=== PATIENT | female | born 1940 | race Caucasian/White ===

== ENCOUNTER 2016-04-16 05:45 | Day surgery (SDC) | payer MEDICARE, OTHER ==
[2016-04-14 16:44] LABS: BASOPHILS 0.3 % (0.0-2.0); EOSINOPHILS 1.9 % (0-7); HEMATOCRIT 43.6 % (36.0-48.0); HEMOGLOBIN 14.3 g/dL (12-16); IMMATURE GRANULOCYTES 0.3 % (0-5); LYMPHOCYTES 16.3 % (15-50); MCH 29.7 pg (26.0-34.0); MCHC 32.8 g/dL (31.0-37.0); MCV 90.5 fL (80.0-100.0); MONOCYTES 7.3 % (2-11); NEUTROPHILS 73.9 % (40-80); PLATELET COUNT 239 10x3/uL (130-400); RBC 4.82 10x6/uL (4.00-5.40); RDW 13.6 % (11.5-14.5); WBC 7.3 10x3/uL (4.8-10.8)
[2016-04-14 17:15] LABS: CALCIUM 9.5 mg/dL (8.5-10.1); CARBON DIOXIDE 21.2 mmol/L (21.0-32.0); CREATININE - SERUM 1.1 mg/dL (0.6-1.3); POTASSIUM - SERUM 4.2 mmol/L (3.5-5.1)
--- NOTE | 2016-04-15 16:55 | HP ---
PATIENT: TADEO TERRELL MEDICAL RECORD: [id number] ACCOUNT: [id number] LOCATION:CHRISTAL : 39 ADMISSION DATE: 04/16/16 HISTORY AND PHYSICAL EXAMINATION HISTORY OF PRESENT ILLNESS: This patient is a 75-year-old white female experiencing postmenopausal bleeding for quite some time. She was seen in the office for evaluation on March 25. At that time, she underwent an ultrasound revealing a uterus of normal size with moderately thickened endometrium and on evaluation in the office, patient was bleeding equivalent of a moderate menstrual cycle. MEDICAL HISTORY: DRUG ALLERGIES: None known. CURRENT MEDICATIONS: Lisinopril for hypertension. REVIEW OF SYSTEMS: Denies chest pain or dyspnea. PAST MEDICAL HISTORY: Include section and knee replacement. SOCIAL HISTORY: Nonsmoker. No ethanol use. PHYSICAL EXAMINATION: VITAL SIGNS: Weight 174, blood pressure 170/80. HEENT: Grossly unremarkable. LUNGS: Clear. HEART: Regular rate and rhythm. ABDOMEN: Soft, nontender. section incision present. PELVIC: Reveals blood in the vaginal vault. Cervix is high in the pelvis and difficult to evaluate, it is palpably irregular. Uterus not palpable due to obesity. Ultrasound revealed a 6.39 cm uterine length and endometrium of 1.17 cm. Ovaries were not visualized. RECTAL: Rectal exam confirms the above. EXTREMITIES: No cyanosis, clubbing or edema. NEUROLOGIC: Grossly intact. BREAST: Within normal range. IMPRESSION: Postmenopausal bleeding with need evaluation for possible cervical cancer versus endometrial cancer. PLAN: Examination under anesthesia, evaluation of the cervix and uterus, cervical biopsies as indicated, hysteroscopy with endometrial biopsies, endometrial curettage, all indicated procedures. I have discussed the above plan with the patient and answered all of her questions. Further discussed potential risks of surgery, anesthesia, infection, bleeding, possibility of more extensive surgery if complications should occur. All questions were answered. TRANSINT:[id number] Voice Confirmation ID: [id number] DOCUMENT ID: [id number] HISTORY AND PHYSICAL [id number] JERMAINDIEGO BENTONDEIDRE BOJORQUEZ MD at 1659 CC: [id number] DICTATION DATE: 04/15/16 1241 SHOOK MACHINE OPERATOR: 04/15/16 1321 [facility] [address] [place] [address]
[~2016-04-16] VITALS: Ht 165.1 cm; Wt 78.9 kg
[~2016-04-16 05:45] MED LIST: BP MED PO; ZANTAC150 MG PO
[2016-04-16] MEDS ORDERED: PRINIVIL20 MG PO (10:03)
[2016-04-16 10:04] VITALS: BP 141/68; Ht 165.1 cm; Wt 78.9 kg
--- NOTE | 2016-04-16 15:06 | NUR ---
1500--IV DC'D, PT UP TO DRESS AT THIS TIME. SAURABH LOGAN
--- NOTE | 2016-04-16 15:24 | NUR ---
1515--DISCHARGE INSTRUCTIONS GIVEN, PT VERBALIZES UNDERSTANDING. PT OFF UNIT VIA MARY. SAURABH LOGAN
--- NOTE | 2016-04-18 08:37 | OP ---
PATIENT NAME: TADEO TERRELL MEDICAL RECORD: [id number] :39 LOCATION:CHRISTAL ADMISSION DATE: SURGEON: BRITTNEY ELISE MD DATE OF OPERATION: 04/16/2016 PREOPERATIVE DIAGNOSIS: Postmenopausal bleeding. POSTOPERATIVE DIAGNOSIS: Postmenopausal bleeding with cervical lesion. PROCEDURE: Examination under anesthesia, endocervical curettage, cervical biopsy, cervical dilatation, hysteroscopy, endometrial biopsy and a biopsy of the lower endometrium. SURGEON: Brittney Elise MD ANESTHESIA: General. FINDINGS: A friable cervical lesion, atrophic-appearing endometrium and 8 cm endometrial cavity depth. ESTIMATED BLOOD LOSS: 30 cc. COMPLICATIONS OF SURGERY: None. OPERATIVE NOTE: The patient taken to the OR and under adequate general anesthesia, prepped and draped in the usual manner for vaginal procedures with legs in the floating boot Gary stirrups. Evaluation of the cervix revealed a friable lesion. Biopsies were taken of the cervix and visible lesion. This was followed by endocervical curettage the endometrial cavity sounded to approximately 8 cm in depth. Cervix was progressively dilated to accept the hysteroscope and hysteroscopic evaluation revealed an atrophic appearing smooth endometrium. There was a friable lesion in the very lower portion of the endometrial cavity. Biopsies were taken of this area separately instruments were then removed and the patient went to the recovery area in good condition with minimal bleeding. TRANSINT:[id number] Voice Confirmation ID: [id number] DOCUMENT ID: [id number] BRITTNEY ELISE MD at 0837 CC: [id number] DICTATION DATE: 04/16/16 1345 TELEPHONE WORKER: 04/16/161909 [facility] 04/16/16 [facility] [address] [place] [address]
== END 2016-04-16 15:15 | disposition home or self-care (01) ==
LOC: D.OPS 05:45 → D.PAN 11:30 → D.OPS 15:15
PROVIDERS: Obstetrics & Gynecology
DX: C53.0 Malignant neoplasm of endocervix (principal); C54.1 Malignant neoplasm of endometrium; I10 Essential (primary) hypertension; Z79.899 Other long term (current) drug therapy; Z96.659 Presence of unspecified artificial knee joint

== ENCOUNTER 2016-05-04 09:17 | Inpatient (IN) | payer MEDICARE, OTHER ==
[~2016-05-04] VITALS: Ht 165.1 cm; Wt 73.7 kg
[~2016-05-04 09:17] MED LIST changes: +PRINIVIL20 MG PO
[2016-05-04 10:00] LABS: BASOPHILS 0 % (0.0-2.0); EOSINOPHILS 0 % (0-7); HEMATOCRIT 39.5 % (36.0-48.0); HEMOGLOBIN 13.2 g/dL (12-16); IMMATURE GRANULOCYTES 0.3 % (0-5); LYMPHOCYTES 4.3 % (15-50); MCH 29.3 pg (26.0-34.0); MCHC 33.4 g/dL (31.0-37.0); MCV 87.8 fL (80.0-100.0); MEAN PLATELET VOLUME 11.2 fL (7.4-10.4); MONOCYTES 11.8 % (2-11); NEUTROPHILS 83.6 % (40-80); RDW 13.9 % (11.5-14.5); WBC 8.9 10x3/uL (4.8-10.8)
[2016-05-04 10:07] LABS: PLATELET COUNT 175 10x3/uL (130-400)
[2016-05-04 10:15] LABS: ALBUMIN 2.9 g/dL (3.4-5.0); ALKALINE PHOSPHATASE 94 U/L (46-116); ALT (SGPT) 40 U/L (10-68); CALC OSMOLALITY 285 mosm/kg (275-300); CALCIUM 10.4 mg/dL (8.5-10.1); CARBON DIOXIDE 21.9 mmol/L (21.0-32.0); CHLORIDE - SERUM 101 mmol/L (98-107); CREATININE - SERUM 1.8 mg/dL (0.6-1.3); POTASSIUM - SERUM 4.3 mmol/L (3.5-5.1); PROTEIN - SERUM 7.8 g/dL (6.4-8.2); SODIUM 136 mmol/L (136-145); UREA NITROGEN 39 mg/dL (7-18); eGFR NON AFRICAN AMERICAN 29 mL/min (90-120)
[2016-05-04 10:16] LABS: GLUCOSE 182 mg/dL (74-106)
[2016-05-04 10:19] LABS: COLOR YELLOW (YELLOW)
[2016-05-04 10:20] LABS: APPEARANCE CLOUDY (CLEAR); BILIRUBIN NEGATIVE (NEGATIVE); GLUCOSE NEGATIVE (NEGATIVE); KETONE NEGATIVE (NEGATIVE); LEUKOCYTE ESTERASE 2+ (NEGATIVE); NITRITE NEGATIVE (NEGATIVE); PROTEIN 2+ mg/dL (NEGATIVE); SPECIFIC GRAVITY 1.015 (1.005-1.020); UROBILINOGEN NORMAL (NORMAL); WHITE CELLS - URINE >50 /hpf (0-5)
[2016-05-04 10:21] LABS: BACTERIA MANY /hpf (NONE SEEN); EPITHELIAL CELLS 0-5 /hpf (0-5)
[2016-05-04 10:23] LABS: AMYLASE - SERUM 34 U/L (25-115); LIPASE 142 U/L (73-393); PRO BNP 310 pg/mL (0-450)
[2016-05-04 10:26] LABS: TROPONIN-I < 0.017 ng/mL (0.000-0.060)
--- NOTE | 2016-05-04 12:40 | NUR ---
RECIEVED FROM ER. ALERT AND ORIENTED. C/O BACK PAIN. HX OF NAUSEA. VOMITING AND DIARRHEA FOR 4 DAYS. TELEMERTY SHOWS SR 97. SR UP WITH CALL LIGHT IN REACH. WILL MONITOR. FAMILY AT BEDSIDE
[2016-05-04 12:42] VITALS: BP 119/67
[2016-05-04 12:49] VITALS: BP 119/67; BMI 27.5
--- NOTE | 2016-05-04 14:47 | NUR ---
LYING QUIETLY, STATES THAT SHE HAS NO PAIN. CALL LIGHT IN REACH WITH SR UP
[2016-05-04 16:03] VITALS: BP 139/49
--- NOTE | 2016-05-04 20:21 | NUR ---
PT RECEIVED LYING IN BED AAO X4 WITH FAMILY MEMBER AT BEDSIDE . HEART RRR. LUNG SOUNDS CLEAR BILATERALLY. BOWEL SOUND ACTIVE X4 QUADRENTS. IV NOTED TO LEFT FOREARM WITH NS @ 125. PATENT. PT RATES PAIN 5/10, STATES PAIN IS IN HER BACK AND SHOULDER. ADMINISTERED DILAUID IVP. PT DENIES NEEDS AT THIS TIME. BED LOW. PHONE AND CALL LIGHT IN REACH. SIDE RAILS UP X2.
[2016-05-04 20:51] VITALS: BP 141/55
--- NOTE | 2016-05-04 21:37 | NUR ---
PT VOMITED APPROX 150 CC. C/O NAUSEA. INFORMED PT SHE COULD HAVE MORE ZOFRAN AT 2300. PT VOIDED 400 CC DARK YELLOW URINE. ADMINISTERED LISINOPRIL PO AND PEPCID PO. PT DENIES OTHER NEEDS. FAMILY MEMBER AT BEDSIDE. BED LOW. PHONE AND CALL LIGHT IN REACH. SIDE RAILS UP X2.
--- NOTE | 2016-05-04 23:01 | NUR ---
PT C/O NAUSEA. ADMINISTERED ZOFRAN IVP PER ORDERS. PT DENIES FURTHER NEEDS. BED LOW. PHONE AND CALL LIGHT IN REACH. SIDE RAILS UP X2.
[2016-05-05 00:30] VITALS: BP 136/62
--- NOTE | 2016-05-05 01:31 | NUR ---
PT DESIGN TECH LIGHT. STATES SHE NEEDS TO USE RESTROOM. PT VOIDED 350 ML. ASSISTED PT BACK TO BED. DENIES FURTHER NEEDS.
--- NOTE | 2016-05-05 03:38 | NUR ---
PT RESTING QUIETLY WITH EYES CLOSED. RESPIRATIONS EVEN, NON-LABORED. NO ACUTE DISTRESS NOTED AT THIS TIME.
[2016-05-05 04:30] VITALS: BP 116/50
--- NOTE | 2016-05-05 04:43 | NUR ---
PT REQUESTS MEDICATION FOR PAIN 05/30. ADMINISTERED DILAUDID 0.5 MG IVP. PT DENIES FURTHER NEEDS. BED LOW. PHONE AND CALL LIGHT IN REACH. SIDE RAILS UP X2.
[2016-05-05 05:44] LABS: BASOPHILS 0 % (0.0-2.0); EOSINOPHILS 0.2 % (0-7); HEMATOCRIT 32.8 % (36.0-48.0); IMMATURE GRANULOCYTES 0.4 % (0-5); LYMPHOCYTES 7.1 % (15-50); MCH 28.6 pg (26.0-34.0); MCV 89.4 fL (80.0-100.0); MEAN PLATELET VOLUME 11.2 fL (7.4-10.4); MONOCYTES 15.7 % (2-11); NEUTROPHILS 76.6 % (40-80); RBC 3.67 10x6/uL (4.00-5.40); RDW 14.1 % (11.5-14.5)
[2016-05-05 05:46] LABS: HEMOGLOBIN 10.5 g/dL (12-16); PLATELET COUNT 139 10x3/uL (130-400); WBC 4.5 10x3/uL (4.8-10.8)
[2016-05-05 06:08] LABS: ANION GAP 15.4 mmol/L (8-16); CALCIUM 8.5 mg/dL (8.5-10.1); CARBON DIOXIDE 20.7 mmol/L (21.0-32.0); POTASSIUM - SERUM 4.1 mmol/L (3.5-5.1)
[2016-05-05 06:14] LABS: CREATININE - SERUM 1.2 mg/dL (0.6-1.3)
--- NOTE | 2016-05-05 06:49 | NUR ---
PT RESTING IN BED QUIETLY WITH EYES CLOSED. AROUSED EASILY. DENIES NEEDS AT THIS TIME. BED LOW. PHONE AND CALL LIGHT IN REACH. SRX2.
--- NOTE | 2016-05-05 07:30 | NUR ---
ASSESSMENT DONE. PT LAYING IN BED WATCHING TV. A/O. DAUGHTER IN ROOM. DENIES N/V/D, OR ABD PAIN. DENIES NEEDS AT THIS TIME. CALL LIGHT WITH IN REACH. WILL CONT. TO MONITOR.
[2016-05-05 08:03] VITALS: BP 119/50
--- NOTE | 2016-05-05 09:52 | NUR ---
RESTS WITH EYES CLOSED. FAMILY AT BS. CALL LIGHT IN REACH. WILL CONT. PLAN OF CARE.
--- NOTE | 2016-05-05 10:08 | NUR ---
SCD'S ON BILATERAL LE
--- NOTE | 2016-05-05 10:52 | NUR ---
PT C/O MIDDLE BACK PAIN, AND NAUSEA. PT AND FAMILY UPSET BECAUSE THEY WERE NOT AWARE OF PT'S PAIN AND NAUSEA MEDICATION BEING PRN. THEY ASSUMED SHE WOULD RECEIVED THE MEDICATED EVERY 6 HOURS SCHEDULED. NURSE EXPLAINED PT WOULD HAVE TO ASK FOR MEDICATION, AND APOLOGIZED THEY WERE NOT MADE AWARE OF THAT FACT. DILAUDID AND ZOFRAN GIVEN PER ORDER. FOLDED WARM BLANKET APPLIED TO PT'S BACK. WHICH PT'S STATES "FEELS GOOD." PT STATES PAIN IS 6/10. WILL CONT. TO MONITOR.
[2016-05-05 12:19] VITALS: BP 138/52
[2016-05-05 13:36] VITALS: Ht 165.1 cm; Wt 73.7 kg
--- NOTE | 2016-05-05 13:43 | NUR ---
AFTER PHENERGAN GIVEN PT HAS BEEN ABLE TO REST COMFORTABLE. PT ASSITED TO RESTROOM BY MOBILE ELECTRONICS INSTALLER. MOBILE ELECTRONICS INSTALLER REPORTS PT IS UNSTEADY, AND PLACED BSC AT BEDSIDE. PT'S DAUGHTERS IN ROOM, AND WILL ASSITE WITH MONITORING PT. BED ALARM TURN ON FOR THE MOMENT. PT IS CURRENTLY SLEEPING. RESP EVEN AND UNLABORED. NO DISTRESS NOTED. CALL LIGHT WITH IN REACH. WILL CONT. TO MONITOR.
--- NOTE | 2016-05-05 15:20 | NUR ---
PT RESTING. AWAKEN BY NURSE ENTERING ROOM. DENIES PAIN OR NAUSEA AT THIS TIME. FAMILY AT BEDSIDE. CALL LIGHT WITH IN REACH. WILL CONT. TO MONITOR.
[2016-05-05 16:12] VITALS: BP 153/58
--- NOTE | 2016-05-05 16:54 | NUR ---
Patient Name: TADEO TERRELL Admission Status: ER Accout number: [id number] Admission Date: 05-04-2016 : 1940 Admission Diagnosis: Attending: MILLIE Current LOS: 1 Anticipated DC Date: Planned Disposition: Home Primary Insurance: MEDICARE A & B Discharge Planning Comments: * Is the patient Alert and Oriented? Yes 0 * How many steps to enter\exit or inside your home? 5 0 * PCP NONE ATTEMPTING TO ESTABLISH WITH DR. PALOMO 0 * Pharmacy [facility] 0 * Preadmission Environment Home with Family 0 * ADLs Independent 0 * Equipment None 0 * Other Equipment NO MEDICAL EQUIPMENT PROVIDER PREFERENCE 0 * List name and contact numbers for known caregivers / representatives who currently or will assist patient after discharge: CRICKET NOGUERA, DAUGHTER, 0 * Community resources currently utilized None 0 * Please name any agencies selected above. NONE 0 * Additional services required to return to the preadmission environment? No 0 * Can the patient safely return to the preadmission environment? Yes 0 * Has this patient been hospitalized within the prior 30 days at any hospital? No 0 CM MET WITH PT IN ROOM TO DISCUSS DISCHARGE PLANNING AND NEEDS. PT REPORTS LIVING AT HOME INDEPENDENTLY; PT'S ADULT DAUGHTER LIVES IN THE HOME. PT HAS NO MEDICAL EQUIPMENT AND NO OUTSIDE SERVICES ASSISTING IN THE HOME. CM DISCUSSED AVAILABILITY OF HOME HEALTH, REHAB SERVICES AND MEDICAL EQUIPMENT. PT HAS UNKNOWN DISCHARGE NEEDS AT THIS TIME, PT'S DAUGHTER WILL PICK HER UP FOR DISCHARGE HOME. PT REPORTS UNKNOWN DISCHARGE NEEDS, PLANS TO DISCHARGE HOME WITH FAMILY. CM TO FOLLOW AND ASSIST NEEDED. Loan Processing Supervisor: Satnam Henderson
--- NOTE | 2016-05-05 17:41 | NUR ---
PT REPORTS NAUSEA IS SLIGHTLY BETTER. WARM BLANKET PLACED ON BACK. NPO AFTER MIDNIGHT SIGN PLACED ON DOOR. REMINDED PT AND FAMILY THAT PT CANNOT HAVE ANYTHING TO EAT OR DRINK AFTER MID-NIGHT D/T EGD THAT IS GOING TO BE SCHEDULED FOR TOMORROW AFTERNOOD. UNDERSTANDING VERBALIZED. CURRENTLY WAITING ON PHARMACY TO BRING ZOFRAN DRIP TO FLOOR.
--- NOTE | 2016-05-05 18:33 | NUR ---
CONSENTS SIGNED FOR EGD WITH TIVA. SIGNED BY PT'S DAUGHTER WITH PT'S OTHER DAUGHTER AND PT PRESENT AND ALL IN AGREEMENT. PT HAS HAD DILAUDID AND PHENERGAN IV WHICH HAS LEFT HER FEELING SEDATED AT THIS TIME. SO, IT WAS AGREED SHE WOULD LET HER DAUGHTER SIGN CONSENT FOR HER.
--- NOTE | 2016-05-05 19:30 | NUR ---
ASSESSMENT COMPLETE, DENIES NEEDS AT THIS TIME. HOB UP SR UP X2, C/L IN REACH. LEFT ARM IV WITH NS AT 125CC/HR VIA PUMP AND ZOFRAN AT 4.7CC/HR VIA PUMP W/O DIFF. UP WITH ASSIST, RODRÍGUEZ WELL. TELEMETRY IN PLACE SHOWING HR SR. SCDS NOT IN USE AT THIS TIME. DAUGHTER AT BEDSIDE VISITING. UDERSTANDING VERBALIZED ABOUT NPO STATUS FOR EGD ON 05/06. CONTINUE TO MONITOR.
[2016-05-05 20:23] VITALS: BP 159/62
[2016-05-06 01:04] VITALS: BP 137/61
[2016-05-06 04:29] VITALS: BP 183/83
[2016-05-06 05:35] LABS: BASOPHILS 0 % (0.0-2.0); EOSINOPHILS 0.7 % (0-7); HEMATOCRIT 31.6 % (36.0-48.0); HEMOGLOBIN 10.3 g/dL (12-16); IMMATURE GRANULOCYTES 0.2 % (0-5); LYMPHOCYTES 9.2 % (15-50); MCHC 32.6 g/dL (31.0-37.0); MEAN PLATELET VOLUME 10.6 fL (7.4-10.4); MONOCYTES 15.9 % (2-11); PLATELET COUNT 142 10x3/uL (130-400); RBC 3.55 10x6/uL (4.00-5.40); RDW 13.8 % (11.5-14.5)
[2016-05-06 05:52] LABS: ANION GAP 12.8 mmol/L (8-16); CALCIUM 8.1 mg/dL (8.5-10.1); CARBON DIOXIDE 22.1 mmol/L (21.0-32.0); CREATININE - SERUM 0.9 mg/dL (0.6-1.3); POTASSIUM - SERUM 3.9 mmol/L (3.5-5.1)
--- NOTE | 2016-05-06 06:22 | NUR ---
REMAINS NPO PER ORDERS FOR TODAYS PROCEDURE. VOICES NO C/O PAIN, DISCOMFORT OR NAUSEA. CONTINUE TO MONITOR. C/L IN REACH,
--- NOTE | 2016-05-06 08:02 | NUR ---
ASSESSMENT DONE. PT RESTING. AWAKEN BY NURSE ENTERING ROOM. A/O. DENIES NAUSEA. HAS ZOFRAN DRIP INFUSING. STATES BACK PAIN HAS IMPROVED. PT STATE SHE HAS BEEN ABLE TO PASS SOME GAS. DENIES NEEDS AT THIS TIME. CALL LIGHT WITH IN REACH. WILL CONT. TO MONITOR.
[2016-05-06 08:07] VITALS: BP 140/70
--- NOTE | 2016-05-06 09:49 | NUR ---
PT'S IV INFILTRATED. NURSE RE-SITED TO PT'S RIGHT UPPER ARM WITH 20G. X1 ATTEMPT. PT TOLERATED WELL. DAUGHTER IN ROOM. PT DENIES NEEDS AT THIS TIME. CALL LIGHT WITH IN REACH. WILL CONT. TO MONITOR.
--- NOTE | 2016-05-06 09:53 | NUR ---
IV PATENT. CALL LIGHT IN REACH. WILL MONITOR NEEDS.
[2016-05-06 12:00] VITALS: BP 171/68
--- NOTE | 2016-05-06 12:17 | NUR ---
PT RESTING. DENIES NAUSEA. DENIES BACK PAIN. STATES SHE IS PASSING GAS NOW. CALL LIGHT WITH IN REACH. WILL CONT. TO MONITOR
--- NOTE | 2016-05-06 15:27 | NUR ---
PT TO GI LAB VIA BED. OUTPT NURSE HERE TO GET PT, AND TOOK IVF AND PEPCID WITH HER SAYING SHE WOULD ADM.
[2016-05-06 16:08] VITALS: BP 171/70
--- NOTE | 2016-05-06 17:16 | NUR ---
REC'D PT BACK FROM GI LAB. PT A/O. MEDS ORDER PER DR. LARA GIVEN BY THIS NURSE UPON ARRIVE TO THIS UNIT. NURSE WAS UNABLE TO SCAN MEDS D/T COMPUTER ISSUES. PT C/O NAUSEA. FAMILY IN ROOM. CALL LIGHT WITH IN REACH. WILL CONT. TO MONITOR.
--- NOTE | 2016-05-06 19:30 | NUR ---
ASSESSMENT COMPLETE, DENIES NEEDS AT THIS TIME. HOB UP SR UP X2, C/L IN REACH. FAMILY MEMBERS VISITING AT BEDSIDE. INSTRUCTED NOT TO GET OOB W/O STAFF TO ASSIST. UNDERSTANDING VERBALIZED. CONTINUE TO MONITOR.
[2016-05-06 20:00] VITALS: BP 145/70
[2016-05-07 00:21] VITALS: BP 164/57
--- NOTE | 2016-05-07 02:54 | NUR ---
LYING ON LEFT SIDE, WITH EYES CLOSED, RESP UNLAB WITH NO S/S OF ACUTE DISTRESS NOTED. HOB UP SR UP X2, C/L IN REACH. CONTINUE TO MONITOR.
[2016-05-07 04:37] VITALS: BP 138/66
[2016-05-07 06:46] LABS: BASOPHILS 0.3 % (0.0-2.0); EOSINOPHILS 1.5 % (0-7); HEMATOCRIT 30.9 % (36.0-48.0); HEMOGLOBIN 10.1 g/dL (12-16); IMMATURE GRANULOCYTES 0.6 % (0-5); LYMPHOCYTES 15.8 % (15-50); MCHC 32.7 g/dL (31.0-37.0); MCV 88.8 fL (80.0-100.0); MONOCYTES 10.5 % (2-11); NEUTROPHILS 71.3 % (40-80); PLATELET COUNT 143 10x3/uL (130-400); RBC 3.48 10x6/uL (4.00-5.40); RDW 13.9 % (11.5-14.5); WBC 3.2 10x3/uL (4.8-10.8)
[2016-05-07 06:57] LABS: CALCIUM 8.2 mg/dL (8.5-10.1); CARBON DIOXIDE 24.6 mmol/L (21.0-32.0); CREATININE - SERUM 1.1 mg/dL (0.6-1.3); POTASSIUM - SERUM 3.6 mmol/L (3.5-5.1)
[2016-05-07 07:00] LABS: INR 1.15 (0.85-1.17); PROTIME 14.6 SECONDS (11.6-15.0)
--- NOTE | 2016-05-07 07:35 | NUR ---
0710-ON HEART MONITOR SHOWING SR, HR 66. ON ROOM AIR. RIGHT UPPER ARM SEEN WITH NS INFUSING AT 125 CC/HR ALONG WITH PROTONIX AT 10 CC/HR WITHOUT PROBLMES. ON EP, LAB VALUES ARE GOOD. NO REPLACEMENT NEEDED. INFORMED PATIENT THAT WE NEED A STOOL SAMPLE, STATES TO UNDERSTANDING. WILL CONTINUE TO MONITOR.
[2016-05-07 08:40] VITALS: BP 132/60
[2016-05-07 08:42] LABS: MAGNESIUM - SERUM 1.9 mg/dL (1.8-2.4); PHOSPHOROUS 2.6 mg/dL (2.5-4.9)
--- NOTE | 2016-05-07 08:56 | NUR ---
ON EP, LAB VALUES ARE NORMAL, NO REPLACEMENTS ARE NEEDED. WILL D/C ORELLANA CATH ORDERED.
--- NOTE | 2016-05-07 10:55 | NUR ---
UNABLE TO HANG LEVAQUIN IVPB AT THIS TIME DUE TO PATIENT AMBULATING IN HALLWAY WITH PHYSICAL THERAPY. WILL HANG SOON PT RETURNS TO ROOM.
[2016-05-07 12:25] VITALS: BP 151/66
[2016-05-07 15:28] VITALS: BP 162/88
--- NOTE | 2016-05-07 16:26 | NUR ---
LAYING ON LEFT SIDE TALKING ON CELLPHONE. IV AND PROTONIX STILL INFUSING TO RIGHT UPPER ARM. WILL CONTINUE TO MONITOR.
--- NOTE | 2016-05-07 18:02 | OP ---
PATIENT NAME: TADEO TERRELL MEDICAL RECORD: [id number] :39 LOCATION:D.M2 D.2136 ADMISSION DATE:05/05/16 SURGEON: STEPHANIE LARA MD DATE OF OPERATION: 05/06/2016 ATTENDING PHYSICIAN: Hailee Erwin MD PROCEDURE: EGD with biopsy. INDICATIONS: Ms. Terrell is a very pleasant 75-year-old woman with a history of hypertension and recently diagnosed with cervical cancer, was admitted secondary to 4 days of nausea, vomiting and diarrhea. She was diagnosed with a urinary tract infection. Her diarrhea ceased after admission. KUB was unremarkable. She presents for inpatient EGD. PREMEDICATIONS: Total IV anesthesia (propofol 200 mg). INSTRUMENT: Olympus video gastroscope. PROCEDURE AND FINDINGS: After receiving informed consent, Ms. Terrell's posterior pharynx was anesthetized with Cetacaine spray, placed in left lateral decubitus position, sedated as per anesthesia. After achieving an adequate level of sedation, gastroscope was introduced per orally and advanced to the duodenum without difficulty. The esophageal mucosa was remarkable for multiple ulcers extending from the mid to distal esophagus consistent with GE reflux disease. The ulcers were not actively bleeding. A moderate size hiatal hernia is present. Gastric mucosa was notable for multiple gastric erosions in the antrum along the incisura and distal body of the stomach, all with stigmata of recent bleeding. Antrum was biopsied to rule out Helicobacter pylori. No lesions were seen in the cardia or fundus. Pylorus was patent and competent. Within the duodenal bulb extending to the apex, was a large circumferential ulcer with black eschars and a site of active bleeding. The small bleeding vessel within the duodenal ulcer was injected with a total of 3 cc of 1:10,000 epinephrine with excellent hemostasis. The ulcer at the apex of the bulb was nonobstructing and there were multiple shallow ulcers seen extending into the second portion of duodenum. None of these were actively bleeding. Gastroscope was then withdrawn. Ms. Terrell tolerated the procedure well, no immediate complications. ASSESSMENT: 1. Impressive large circumferential ulcer with black eschars and active bleeding at the apex of the bulb, status post epinephrine injection with good hemostasis. 2. Multiple superficial duodenal ulcers in the second portion of duodenum. 3. Erosive gastritis with stigmata of recent bleeding, status post antral biopsy. 4. Moderate size hiatal hernia. 5. Multiple esophageal ulcers secondary to gastroesophageal reflux disease. RECOMMENDATIONS: 1. Clear liquid diet. 2. Protonix drip. 3. Sucralfate liquid 1 g q.6 hours. 4. Follow up antral biopsy. 5. Recheck CBC in a.m. 6. Avoid nonsteroidal anti-inflammatory drugs (she had been taking 5-6 at least OPERATIVE REPORT [id number] TADEO TERRELL daily at home). 7. Follow up EGD in 3 months. TRANSINT:[id number] Voice Confirmation ID: [id number] DOCUMENT ID: [id number] STEPHANIE LARA MD at 1802 CC: HAILEE ERWIN MD [id number] DICTATION DATE: 05/06/16 170 LIAISON OFFICER: 05/06/162221 ADM IN [facility] [address] [place] [id number]
--- NOTE | 2016-05-07 20:00 | NUR ---
PT RESTING IN BED WITH FAMILY AT BEDSIDE. ALERT/ORIENTED. SR PER TELEMETRY. NONLABORED RESPIRATIONS ON ROOM AIR. NS @ 125ML/HR INFUSING TO RFA. SEE ASSESSMENT. POSSIBLE D/C HOME IN AM.
[2016-05-07 20:04] VITALS: BP 171/56
--- NOTE | 2016-05-07 22:00 | NUR ---
HS MEDS GIVEN. PT RESTING. PLEASANT.
[2016-05-08 00:38] VITALS: BP 172/69
[2016-05-08 05:04] VITALS: BP 168/73
[2016-05-08 05:35] LABS: BASOPHILS 0 % (0.0-2.0); EOSINOPHILS 2.2 % (0-7); HEMATOCRIT 30.4 % (36.0-48.0); HEMOGLOBIN 9.9 g/dL (12-16); IMMATURE GRANULOCYTES 0.8 % (0-5); LYMPHOCYTES 15.7 % (15-50); MCH 28.5 pg (26.0-34.0); MCHC 32.6 g/dL (31.0-37.0); MCV 87.6 fL (80.0-100.0); MEAN PLATELET VOLUME 10.3 fL (7.4-10.4); MONOCYTES 9.5 % (2-11); NEUTROPHILS 71.8 % (40-80); PLATELET COUNT 158 10x3/uL (130-400); RBC 3.47 10x6/uL (4.00-5.40); RDW 13.7 % (11.5-14.5); WBC 3.6 10x3/uL (4.8-10.8)
[2016-05-08 06:04] LABS: CALCIUM 8.2 mg/dL (8.5-10.1); CARBON DIOXIDE 24.1 mmol/L (21.0-32.0); MAGNESIUM - SERUM 1.9 mg/dL (1.8-2.4); PHOSPHOROUS 2.5 mg/dL (2.5-4.9); POTASSIUM - SERUM 3.1 mmol/L (3.5-5.1)
--- NOTE | 2016-05-08 07:27 | NUR ---
ON EP, K+ IS 3.1, WILL SUPPLEMENT ORDERED. DENIES NEEDS AT PRESENT TIME. LAYING ON LEFT SIDE WITH NS INFUSING AT 125 CC/HR TO RIGHT UPPER ARM. ON HEART MONITOR SHOWING SR, HR 91. ON ROOM AIR, WANTING TO GO HOME. STILL NEED STOOL SAMPLE IS ABLE TO GET. CALL LIGHT IN USE. WILL CONTINUE TO MONITOR.
[2016-05-08 08:33] VITALS: BP 164/72
[2016-05-08 12:05] VITALS: BP 123/72
[2016-05-08] MEDS ORDERED: PROTONIX40 MG PO (13:34)
[2016-05-08] MEDS ORDERED: CARAFATE1 G/10 ML PO (13:34)
[2016-05-08] MEDS ORDERED: LEVAQUIN500 MG PO (13:37)
--- NOTE | 2016-05-08 15:37 | NUR ---
Patient Name: TADEO TERRELL Admission Status: ER Accout number: [id number] Admission Date: 05-05-2016 : 1940 Admission Diagnosis:URINARY TRACT INFECTION, SITE NOT SPECIFIED Attending: MILLIE Current LOS: 3 Anticipated DC Date: 05-08-2016 Planned Disposition: Home Primary Insurance: MEDICARE A & B Discharge Planning Comments: CM MET WITH PT IN ROOM TO DISCUSS DISCHARGE NEEDS AND PLANNING. CM DISCUSSED AVAILABILITY OF HOME HEALTH, REHAB SERVICES AND MEDICAL EQUIPMENT. PT DENIES DISCHARGE NEEDS. DAUGHTER TO TRANSPORT HOME AT DISCHARGE. IMPORTANT MESSAGE FROM MEDICARE PROVIDED AND EXPLAINED. Filter Washer And Presser: Satnam Henderson
--- NOTE | 2016-05-08 15:52 | NUR ---
VERBAL AND WRITTEN DISCHARGE INSTURICTIONS GIVEN TO PATIENT AND DAUGHTER. SALINE LOCK REMOVED WITH CATH TIP INTACT. DISHCARGED HOME VIA WHEELCHAIR.
--- NOTE | 2016-06-30 09:39 | DS ---
PATIENT:TADEO TERRELL :[birth year] MEDICAL RECORD: [id number] DISCHARGE SUMMARY ADMISSION DATE: 05/05/16 DISCHARGE DATE: 05/08/16 This is a discharge dated 05/08/2016 from the inpatient hospital. DISCHARGE DIAGNOSES: 1. Erosive gastritis. 2. Ulcerative esophagitis. 3. Nausea, vomiting, diarrhea. 4. Acute kidney injury. 5. Urinary tract infection, cultures positive for Escherichia coli. 6. Dehydration. 7. Back pain. 8. Anemia from gastrointestinal blood loss. 9. Hypertension. 10. Hiatal hernia. 11. Constipation. 12. Cervical cancer. CONSULTS THIS HOSPITALIZATION: GI with Dr. Newsome. PROCEDURES THIS HOSPITALIZATION: EGD with findings of gastric and esophageal ulcers and moderate hiatal hernia. HOSPITAL COURSE: Full H&P is located elsewhere on the chart on this 75-year-old female who was admitted for evaluation of nausea, vomiting and diarrhea. She was started on IV fluids and IV antibiotics. She had antiemetics for nausea. Creatinine normalized after IV fluids. GI was consulted. She was seen by Dr. Newsome and underwent EGD with findings as listed above. She was on a Protonix drip and a clear liquid diet, started on Carafate. RECOMMENDATIONS: To avoid NSAIDs. She had antibiotics for treatment of urinary tract infection. Her H&H was stable. Diet was advanced as tolerated. Her symptoms improved. She was considered stable for discharge on 05/08/2016. DISCHARGE MEDICATIONS: As per discharge medication reconciliation. DISCHARGE DISPOSITION: The patient is discharged home. She will continue her current diet and level of activity. She will follow up with primary care in 1 week. She will keep her currently scheduled appointment at [facility] for followup or evaluation regarding cervical cancer. She will follow up with Dr. Newsome with GI as directed. At least 30 minutes was spent on this discharge activity. TRANSINT:[id number] Voice Confirmation ID: [id number] DOCUMENT ID: [id number] Dictated By: JACOBO LEMA I have interviewed/examined the above patient and agree with these documented findings. DISCHARGE SUMMARY REPORT [id number] XANDERMALATADEO SHADE RICHARDSON, HAILEE ANSARI at 1029 at 0939 CC: [id number] DICTATION DATE: 06/20/16 1539 RING MAKING MACHINE OPERATOR: 06/21/16 0011 DIS IN 05/08/16 [facility] [address] [place] [place] [id number]
== END 2016-05-08 15:53 | disposition home or self-care (01) | DRG 381 ==
LOC: D.ER 09:17 → D.M2 10:41 → OBSVTIME 10:41 → D.M2 11:21 → D.ER 11:21 → D.M2 05-05 10:45
PROVIDERS: Family Medicine; Internal Medicine Gastroenterology; ADMIT Emergency Medicine
PROC: 3E0G8GC Introduction of Other Therapeutic Substance into Upper GI, Via Natural or Artificial Opening Endoscopic (ICD-10-PCS; 2016-05-06)
PROC: 0DB68ZX Excision of Stomach, Via Natural or Artificial Opening Endoscopic, Diagnostic (ICD-10-PCS; principal; 2016-05-06 16:00)
DX: K22.10 Ulcer of esophagus without bleeding (principal); N39.0 Urinary tract infection, site not specified; N17.9 Acute kidney failure, unspecified; K26.4 Chronic or unspecified duodenal ulcer with hemorrhage; B96.20 Unspecified Escherichia coli [E. coli] as the cause of diseases classified elsewhere; K29.70 Gastritis, unspecified, without bleeding; K44.9 Diaphragmatic hernia without obstruction or gangrene; K21.9 Gastro-esophageal reflux disease without esophagitis; D50.0 Iron deficiency anemia secondary to blood loss (chronic); I10 Essential (primary) hypertension; E86.0 Dehydration; C53.9 Malignant neoplasm of cervix uteri, unspecified; M54.9 Dorsalgia, unspecified; K59.00 Constipation, unspecified

== ENCOUNTER 2016-07-16 12:36 | Inpatient (IN) | payer MEDICARE, OTHER ==
[~2016-07-16 12:36] MED LIST changes: +CARAFATE1 G/10 ML PO; +LEVAQUIN500 MG PO; +PROTONIX40 MG PO
[2016-07-16] MEDS ORDERED: ZOFRAN4 MG PO (13:25)
[2016-07-16] MEDS ORDERED: POTASSIUM99 M1 PO (13:26)
[2016-07-16] MEDS ORDERED: PROBIOTIC1 EAC1 PO (13:27)
[2016-07-16] MEDS ORDERED: MAGNESIUM GLUC500 M1 PO (13:29)
[2016-07-16 13:38] LABS: BASOPHILS 0 % (0-2); EOSINOPHILS 1.1 % (0-7); HEMATOCRIT 37.2 % (36.0-48.0); HEMOGLOBIN 12.4 g/dL (12-16); IMMATURE GRANULOCYTES 0.4 % (0-5); LYMPHOCYTES 4.7 % (15-50); MCH 28.8 pg (26.0-34.0); MCHC 33.3 g/dL (31.0-37.0); MCV 86.3 fL (80.0-100.0); MEAN PLATELET VOLUME 10.7 fL (7.4-10.4); NEUTROPHILS 90.8 % (40-80); PLATELET COUNT 163 10x3/uL (130-400); RBC 4.31 10x6/uL (4.00-5.40); RDW 14.5 % (11.5-14.5); WBC 4.7 10x3/uL (4.8-10.8)
[2016-07-16 14:00] LABS: ALBUMIN 3.7 g/dL (3.4-5.0); ANION GAP 21.1 mmol/L (8-16); BILIRUBIN - TOTAL 0.18 mg/dL (0.2-1.3); CALCIUM 8.3 mg/dL (8.5-10.1); CARBON DIOXIDE 15.5 mmol/L (21.0-32.0); CREATININE - SERUM 5.3 mg/dL (0.6-1.3); POTASSIUM - SERUM 3.6 mmol/L (3.5-5.1); PROTEIN - SERUM 7.2 g/dL (6.4-8.2)
[2016-07-16 16:01] LABS: APPEARANCE CLEAR (CLEAR); BILIRUBIN NEGATIVE (NEGATIVE); COLOR YELLOW (YELLOW); GLUCOSE NEGATIVE (NEGATIVE); KETONE NEGATIVE (NEGATIVE); LEUKOCYTE ESTERASE NEGATIVE (NEGATIVE); NITRITE NEGATIVE (NEGATIVE); PROTEIN TRACE mg/dL (NEGATIVE); UROBILINOGEN NORMAL (NORMAL)
[2016-07-17 06:21] LABS: HEMATOCRIT 32.7 % (36.0-48.0); HEMOGLOBIN 10.8 g/dL (12-16); MCH 28.5 pg (26.0-34.0); MCV 86.3 fL (80.0-100.0); MEAN PLATELET VOLUME 11.2 fL (7.4-10.4); PLATELET COUNT 146 10x3/uL (130-400); RBC 3.79 10x6/uL (4.00-5.40); RDW 14.6 % (11.5-14.5); WBC 2.9 10x3/uL (4.8-10.8)
[2016-07-17 06:23] LABS: ANION GAP 19.2 mmol/L (8-16); CALCIUM 8.2 mg/dL (8.5-10.1); CARBON DIOXIDE 16.4 mmol/L (21.0-32.0); PHOSPHOROUS 4.6 mg/dL (2.5-4.9); POTASSIUM - SERUM 3.6 mmol/L (3.5-5.1)
[2016-07-17 06:40] LABS: CREATININE - SERUM 3.8 mg/dL (0.6-1.3)
[2016-07-17 07:02] LABS: EOSINOPHILS 1 % (0-7); LYMPHOCYTES 11 % (15-50); MONOCYTES 7 % (2-11); NEUTROPHILS 80 % (40-80); PLATELET ESTIMATE NORMAL
[2016-07-18 06:12] LABS: BASOPHILS 0.4 % (0-2); EOSINOPHILS 2.7 % (0-7); HEMATOCRIT 30.7 % (36.0-48.0); HEMOGLOBIN 10.4 g/dL (12-16); IMMATURE GRANULOCYTES 0.4 % (0-5); LYMPHOCYTES 17.2 % (15-50); MCH 28.9 pg (26.0-34.0); MCHC 33.9 g/dL (31.0-37.0); MCV 85.3 fL (80.0-100.0); MEAN PLATELET VOLUME 10.8 fL (7.4-10.4); MONOCYTES 10.3 % (2-11); PLATELET COUNT 138 10x3/uL (130-400); RDW 14.6 % (11.5-14.5); WBC 2.6 10x3/uL (4.8-10.8)
[2016-07-18 06:50] LABS: ANION GAP 12.1 mmol/L (8-16); CALCIUM 8.2 mg/dL (8.5-10.1); CARBON DIOXIDE 25.5 mmol/L (21.0-32.0); CREATININE - SERUM 2.2 mg/dL (0.6-1.3); PHOSPHOROUS 2.6 mg/dL (2.5-4.9); POTASSIUM - SERUM 3.6 mmol/L (3.5-5.1)
[2016-07-19 06:02] LABS: BASOPHILS 0 % (0-2); EOSINOPHILS 4.6 % (0-7); HEMATOCRIT 31.6 % (36.0-48.0); HEMOGLOBIN 10.5 g/dL (12-16); IMMATURE GRANULOCYTES 0.4 % (0-5); LYMPHOCYTES 16.8 % (15-50); MCH 28.4 pg (26.0-34.0); MCHC 33.2 g/dL (31.0-37.0); MCV 85.4 fL (80.0-100.0); MEAN PLATELET VOLUME 10.4 fL (7.4-10.4); NEUTROPHILS 68.2 % (40-80); PLATELET COUNT 130 10x3/uL (130-400); RDW 14.7 % (11.5-14.5); WBC 2.8 10x3/uL (4.8-10.8)
[2016-07-19 06:32] LABS: CALCIUM 7.8 mg/dL (8.5-10.1); CREATININE - SERUM 1.7 mg/dL (0.6-1.3); PHOSPHOROUS 2.5 mg/dL (2.5-4.9); POTASSIUM - SERUM 3.5 mmol/L (3.5-5.1)
[2016-07-19 06:34] LABS: CARBON DIOXIDE 32.5 mmol/L (21.0-32.0)
[2016-07-19] MEDS ORDERED: LEVOFLOXAC250 MG/50 PO (21:00)
[2016-07-19] MEDS ORDERED: LEVAQUIN750 MG PO (21:04)
== END 2016-07-19 21:31 | disposition home or self-care (01) | DRG 682 ==
LOC: D.M2 12:36
PROVIDERS: Internal Medicine Nephrology; ADMIT Legal Medicine
DX: N17.9 Acute kidney failure, unspecified (principal); K25.0 Acute gastric ulcer with hemorrhage; E86.0 Dehydration; I10 Essential (primary) hypertension; D64.9 Anemia, unspecified; C53.9 Malignant neoplasm of cervix uteri, unspecified; Z87.891 Personal history of nicotine dependence

== ENCOUNTER 2016-12-15 08:55 | Outpatient (CLI) | payer MEDICARE, OTHER ==
[~2016-12-15 08:55] MED LIST changes: +LEVAQUIN750 MG PO; +LEVOFLOXAC250 MG/50 PO; +MAGNESIUM GLUC500 M1 PO; +POTASSIUM99 M1 PO; +PROBIOTIC1 EAC1 PO; +ZOFRAN4 MG PO
[2016-12-15] MEDS ORDERED: PERCOCET 10/3251 TA1 PO (10:32)
[2016-12-15] MEDS ORDERED: ATIVAN1 MG PO (10:33)
--- NOTE | 2016-12-15 10:40 | NUR ---
IN AND OUT CATHETERIZATION PERFORMED, APPROX 3 ML URINE OUTPUT ONLY. PATIENT REPORTS THAT SHE JUST URINATED IN THE LAST FEW MINUTES. PATIENT HAD BEEN HOLDING URINE TO GIVE SAMPLE AND WAS UNABLE TO HOLD IT ANY LONGER. WATER GIVEN, ENCOURAGED PATIENT TO DRINK AND IN AND OUT CATHETERIZATION WILL BE PERFORMED AGAIN
[2016-12-15 10:50] VITALS: BP 131/58; Ht 162.6 cm
--- NOTE | 2016-12-15 11:12 | NUR ---
PATIENT CATHETERIZED AGAIN, SUFFICIENT AMOUNT OF CLEAR YELLOW URINE RECEIVED TO FILL UP SPECIMEN CONTAINER. SPECIMEN SENT TO LAB
== END 2016-12-15 11:25 | disposition home or self-care (01) ==
LOC: D.OPS 08:55
DX: N39.0 Urinary tract infection, site not specified (principal); Z01.812 Encounter for preprocedural laboratory examination

== ENCOUNTER 2016-12-19 09:25 | Outpatient (CLI) | payer MEDICARE, OTHER ==
--- NOTE | ~2016-12-19 | HEMODYNAMI ---
PATIENT:TADEO TERRELL MEDICAL RECORD: [id number] : 38 LOCATION:[facility] AD[facility] DATE: 12/19/16 Generatedon:12/19/201615:01 Patient name: TADEO TERRELL Patient #: [id number] SSN: D OB: 1940 Date of study: 12/19/2016 Page: Of Hemodynamic Procedure Report Patient Data Patient Demographics Procedure consent was obtained First Name: TADEO Gender: Female Last Name: XANDER : 1940 Middle Initial: SHADE Age: 76 year(s) Patient #: [id number] Race: Unknown Additional ID: [id number] Contact details [address]: [address] [place] [address] State: [place] City: [place] Zip code: [address] Admission Admission Data Admission Date: 12/19/2016 Admission Time: 9:25 Procedure Procedure Types Cath Procedure Peripheral Cath Diagnostic Procedure Miscellaneous Procedure Description Procedure Date Procedure Date: 12/19/2016 Procedure Start Time: 13:49 Procedure Staff Name Function Tee Mei MD Performing Physician Marisol Renteria RT Scrub Rajni Funez RN Nurse Royal Iverson RT Monitor Akhil Gaines MD Additional personnel Procedure Data Cath Procedure Fluoroscopy Diagnostic fluoroscopy Total fluoroscopy Time: 9.9 time: 9.9 min min Diagnostic fluoroscopy Total fluoroscopy dose: 297 dose: 297 mGy mGy Hemodynamics Rest Heart Rate: 78 (bpm) Snapshots Pre Cath Intra NCS Post Cath Vital Signs Time Heart Resp SPO2 NIBP (mmHg) Rhythm Pain Sedation Rate (ipm) (%) Status Level (bpm) 13:08:20 79 36 100 152/60(93) NSR 0 (11) 10(A) , No pain 13:12:40 77 13 100 140/65(112) NSR 0 (11) 10(A) , No pain 13:16:56 80 13 100 143/64(116) NSR 0 (11) 10(A) , No pain 13:21:12 78 13 100 129/59(97) NSR 0 (11) 10(A) , No pain 13:25:24 77 12 100 122/61(100) NSR 0 (11) 10(A) , No pain 13:29:42 74 11 100 120/50(86) NSR 0 (11) 10(A) , No pain 13:33:54 75 10 100 121/63(89) NSR 0 (11) 10(A) , No pain 13:38:08 72 9 100 124/59(101) NSR 0 (11) 10(A) , No pain 13:42:22 72 11 100 113/57(101) NSR 0 (11) 10(A) , No pain 13:46:32 74 10 100 117/60(98) NSR 0 (11) 10(A) , No pain 13:50:46 72 9 100 117/55(87) NSR 0 (11) 10(A) , No pain 13:55:00 72 9 100 109/54(87) NSR 0 (11) 10(A) , No pain 13:59:12 75 10 100 118/52(88) NSR 0 (11) 10(A) , No pain 14:03:26 70 9 100 127/56(87) NSR 0 (11) 10(A) , No pain 14:07:40 70 9 100 113/58(96) NSR 0 (11) 10(A) , No pain 14:11:50 74 10 100 120/64(103) NSR 0 (11) 10(A) , No pain 14:16:08 72 8 100 125/49(90) NSR 0 (11) 10(A) , No pain 14:20:28 73 7 100 113/47(81) NSR 0 (11) 10(A) , No pain 14:24:42 69 7 100 112/51(80) NSR 0 (11) 10(A) , No pain 14:28:54 68 8 100 112/58(95) NSR 0 (11) 10(A) , No pain 14:33:53 70 10 100 Measuring NSR 0 (11) 10(A) , No pain 14:33:59 70 10 100 125/60(83) NSR 0 (11) 10(A) , No pain 14:38:15 71 9 100 117/59(102) NSR 0 (11) 10(A) , No pain 14:43:14 71 8 100 Measuring NSR 0 (11) 10(A) , No pain 14:43:24 71 8 100 118/59(86) NSR 0 (11) 10(A) , No pain 14:47:37 68 9 100 111/60(103) NSR 0 (11) 10(A) , No pain 14:51:36 No Cuff NSR 0 (11) 10(A) , No pain 14:55:36 99 No Cuff NSR 0 (11) 10(A) , No pain 14:59:35 98 No Cuff NSR 0 (11) 10(A) , No pain Procedure Log Time Note 12:53:59 Royal Iverson RT (R) (CV) sent for patient. Start room use. 12:54:08 Time tracking: Regular hours 12:54:14 Plan of Care:Hemodynamics will remain stable., Cardiac rhythm will remain stable., Comfort level will be maintained., Respiratory function will remain adequate., Patient/ family verbilizes understanding of procedure., Procedure tolerated without complication., Recovers from procedure without complications.. 12:54:58 Patient received from Outpatients to IR Alert and oriented. Tansferred to table in Prone position. 12:55:05 Correct patient and procedure confirmed by team. 12:55:07 Signed procedure consent form obtained from patient. 12:55:08 ECG and BP/O2 sat monitors applied to patient. 12:55:09 Full Disclosure recording started 12:55:10 - 12:55:37 SEE ANESTHESIA NOTE FOR PREPROCEDURE TIVA 12:55:38 - 12:55:45 Use device set IR Diagnostic 12:55:46 Sterile Angiographic Pack opened to sterile field. 12:55:47 Bag Decanter opened to sterile field. 13:07:18 Vital chart was started 13:10:03 Baseline sample Acquired. 13:40:00 Physician arrived 13:40:00 --------ALL STOP TIME OUT------ 13:40:01 Final Timeout: patient, procedure, and site verified with staff and physician. All members of the team are in agreement. 13:40:11 Lumbar site verified by team. 13:40:21 Physical assessment completed. ASA score P 2 - A patient with mild systemic disease as per Tee Mei MD. 13:40:25 Sedation plan: IV Moderate Sedation Propofol 13:49:39 Procedure started. 13:49:48 Local anesthetic to Lumbar area with Lidocaine 1% by Tee Mei MD.INITIAL ACCESS ONLY 14:36:52 Timer 2 started at 2:36 PM, stopped at 2:36 PM, duration 00:00:01 sec. 14:40:39 Procedure ended.(Physican Out) 14:42:18 Fluoroscopy time 09.90 minutes. 14:42:28 Flurop Dose total: 297 14:42:28 Fluoroscopy dose: 297 mGy 14:42:34 Insertion/operative site no bleeding no hematoma. 14:44:51 Post Lumbar area:stable 14:46:24 Post-procedure physical assessment completed. ASA score P 2 - A patient with mild systemic disease as per Tee Mei MD. 14:46:27 Post procedure instruction explained to patient.Patient verbalizes understanding. 14:46:27 Procedure and supply charges have been captured, reviewed, submitted an d are correct. 14:46:47 [employer]ax 13 G VERTEBROPLASTY Needle opened to sterile field. 14:46:49 [employer] 13 G VERTEBROPLASTY Needle opened to sterile field. 14:46:49 [employer] 13 G VERTEBROPLASTY Needle opened to sterile field. 14:46:49 [employer] 13 G VERTEBROPLASTY Needle opened to sterile field. 14:47:04 [employer] CEMENT BONE VERTEBROPLASTY kit opened to sterile field. 15:00:37 Report given to Outpatients. 15:00:42 Patient transfered to Outpatients with Stretcher. 15:01:07 Vital chart was stopped Device Usage Item Name Manufacture Quantity Catalog Hospital Part Current Minim al Lot# / Number Charge Number Stock Stock Serial# Code Sterile [place] 1 [id number] 5 Angiographic Health Pack Bag Decanter Microtek 1 [id number] [employer] Avamax 13 G CareFusion 4 [id number] 5 VERTEBROPLASTY Needle Av[employer] CEMENT CareFusion 1 [id number] 5 [id number] BONE VERTEBROPLASTY kit Signature Audit [place] Stage Time Signature Unsigned Intra-Procedure 12/19/2016 Royal 3:01:04 PM Kishor RT (R) (CV) Signatures Monitor : Royal Signature : Kishor RT Date : Time : [address] [id number]
[~2016-12-19 09:25] MED LIST changes: +ATIVAN1 MG PO; +PERCOCET 10/3251 TA1 PO
[2016-12-19 10:10] LABS: APPEARANCE CLEAR (CLEAR); BILIRUBIN NEGATIVE (NEGATIVE); COLOR YELLOW (YELLOW); GLUCOSE NEGATIVE (NEGATIVE); KETONE NEGATIVE (NEGATIVE); NITRITE NEGATIVE (NEGATIVE); PROTEIN NEGATIVE (NEGATIVE); SPECIFIC GRAVITY 1.015 (1.005-1.020); UROBILINOGEN NORMAL (NORMAL)
[2016-12-19 11:17] LABS: BASOPHILS 0 % (0-2); EOSINOPHILS 1.9 % (0-7); HEMATOCRIT 30.4 % (36.0-48.0); IMMATURE GRANULOCYTES 0.3 % (0-5); LYMPHOCYTES 8.2 % (15-50); MCH 30.9 pg (26.0-34.0); MCHC 32.9 g/dL (31.0-37.0); MCV 93.8 fL (80.0-100.0); MEAN PLATELET VOLUME 10.2 fL (7.4-10.4); MONOCYTES 8.5 % (2-11); NEUTROPHILS 81.1 % (40-80); PLATELET COUNT 193 10x3/uL (130-400); RBC 3.24 10x6/uL (4.00-5.40); RDW 12.9 % (11.5-14.5); WBC 3.6 10x3/uL (4.8-10.8)
[2016-12-19 11:25] LABS: APTT 24.9 SECONDS (22.8-39.4); INR 0.94 (0.85-1.17); PROTIME 12.4 SECONDS (11.6-15.0)
[2016-12-19 11:26] LABS: ANION GAP 11.8 mmol/L (8-16); CALCIUM 9.2 mg/dL (8.5-10.1); CREATININE - SERUM 1.5 mg/dL (0.6-1.3); POTASSIUM - SERUM 3.8 mmol/L (3.5-5.1)
[2016-12-19 11:36] VITALS: BP 171/59; BMI 24.6
--- NOTE | 2016-12-19 15:19 | NUR ---
1500 BACK FROM SACRALPLASTY, RESP EVEN AND NONLABORED.DRESSING C/D/I NO BLEEDING. INSTRUCTED TO KEEP HEAD OF BED FLAT X 2 1 HOUR THAN MAY ELEVATE HOB AT 40 DEGREES.FAMILY PRESENT.
--- NOTE | 2016-12-19 16:53 | NUR ---
1645 ESTEBAN STAPLETON 10CC WATER. TOLERATED DIET. HERE SEEING PATIENT AND STATED WILL PUT IN DISCHARGE INSTRUCTIONS.PAIN LEVEL IS A 4 TO BACK.
--- NOTE | 2016-12-19 16:55 | NUR ---
V/S ON WRITTEN NOTE.
--- NOTE | 2016-12-19 16:56 | NUR ---
1750 REPORT TO TRICIA OLIVA R.N.
--- NOTE | 2016-12-19 17:06 | NUR ---
VS TAKEN AND PLACED ON POST OP SHEET AND PLACED IN CHART
--- NOTE | 2016-12-19 19:23 | NUR ---
1645 100CC LIGHT YELLOW URINE EMPTIED.
--- NOTE | 2016-12-19 19:44 | NUR ---
1940 IV DCD CATHETER INTACT. DISCHARGE INSTRUCTIONS GIVEN. PAIN A 4 MUCH BETTER. DENIES PAIN OR PRESSURE IN LOWER ABDOMEN OR BLADDER. HAS WALKED IN ROOM SOME. DAUGHTERS WILL BE WITH HER TONIGHT AND INSTRUCTED IF UNABLE TO URINATE BY 5 TO GO TO THE EMERGENCY ROOM. VERBALLY UNDERSTANDS.
--- NOTE | 2016-12-19 19:57 | NUR ---
1945 TO HOME VIA W/C WITH DAUGHTER.
--- NOTE | 2016-12-19 19:59 | NUR ---
1909 REPORT BACK FROM TRICIA OLIVA R.N.
== END 2016-12-19 18:45 | disposition home or self-care (01) ==
LOC: D.OPS 09:25 → D.RAD 13:00 → D.OPS 18:45
PROVIDERS: Radiology Diagnostic Radiology
DX: M80.88XA Other osteoporosis with current pathological fracture, vertebra(e), initial encounter for fracture (principal); I10 Essential (primary) hypertension; K21.9 Gastro-esophageal reflux disease without esophagitis; Z87.891 Personal history of nicotine dependence; Z01.812 Encounter for preprocedural laboratory examination